=== PATIENT | male | born 1950 | race Caucasian/White ===

== ENCOUNTER 2022-09-03 21:14 | Emergency (ER) | payer OTHER ==
[~2022-09-03] VITALS: Ht 182.9 cm; Wt 85.7 kg
[2022-09-03] MEDS ORDERED: PROTONIX40 MG PO (21:48)
[2022-09-03] MEDS ORDERED: TYLENOL325 M1 PO (21:49)
[2022-09-03] MEDS ORDERED: FLOMAX0.4 MG PO (21:49)
[2022-09-03] MEDS ORDERED: COLACE100 MG PO (21:50)
[2022-09-03] MEDS ORDERED: VENTOLIN HFA18 GM INH (21:50)
[2022-09-03] MEDS ORDERED: DULCOLAX10 MG PR (21:50)
[2022-09-03] MEDS ORDERED: FLEET ENEMA133 ML PR (21:51)
[2022-09-03] MEDS ORDERED: MILK OF MA400 MG/5 M PO (21:51)
[2022-09-03] MEDS ORDERED: IMODIUM A-D2 M2 PO (21:51)
[2022-09-03] MEDS ORDERED: CIPRO500 MG PO (21:53)
[2022-09-04] MEDS ORDERED: HYDROCODON-ACE1 EA10 PO (00:13)
[2022-09-04] MEDS ORDERED: LEVOFLOXACIN500 MG PO (00:13)
== END 2022-09-04 05:46 ==
LOC: ED 21:14
DX: N39.0 Urinary tract infection, site not specified (principal); R93.5 Abnormal findings on diagnostic imaging of other abdominal regions, including retroperitoneum; J44.9 Chronic obstructive pulmonary disease, unspecified; I10 Essential (primary) hypertension; G47.30 Sleep apnea, unspecified; F43.10 Post-traumatic stress disorder, unspecified; K21.9 Gastro-esophageal reflux disease without esophagitis; Z88.1 Allergy status to other antibiotic agents; Z79.899 Other long term (current) drug therapy
CPT/HCPCS: 36415; 74176; 80053; 81001; 83690; 85025; 99284-25; A9270